=== PATIENT | female | born 1960 | race Caucasian/White ===

== ENCOUNTER 2017-04-20 08:37 | Inpatient (IN) | payer MEDICAID, OTHER ==
[~2017-04-20] VITALS: Ht 166.4 cm; Wt 74.2 kg
[2017-04-20 09:51] LABS: EOSINOPHILS % (AUTO) 2.6 % (1.0-6.0); HEMATOCRIT 42.5 % (36-46); HEMOGLOBIN 14.5 g/dL (12.0-16.0); LYMPHOCYTES % (AUTO) 32.9 % (22.0-44.0); MEAN CORPUSCULAR HEMOGLOBIN 36.8 pg (26.0-34.0); MEAN CORPUSCULAR HGB CONC 34.2 G/dL (31.0-37.0); MEAN CORPUSCULAR VOLUME 108 fL (80-100); MONOCYTES # (AUTO) 0.4 K/uL (0.1-1.0); MONOCYTES % (AUTO) 6.5 % (2.0-9.0); NEUTROPHILS # (AUTO) 3.5 K/uL (1.8-7.7); PLATELET COUNT (AUTO) 358 K/uL (150-450); RED BLOOD CELL COUNT(AUTO) 3.95 MIL/uL (4.00-5.20); RED CELL DISTRIBUTION WIDTH 14.9 % (11.5-14.5)
[2017-04-20 09:53] LABS: ANION GAP 12 mmol/L (8-16); CARBON DIOXIDE 24 mmol/L (22-29); CHLORIDE 107 mmol/L (98-107); CREATININE 0.49 mg/dL (0.60-1.30); GLUCOSE,RANDOM 96 mg/dL (70-110); POTASSIUM 3.6 mmol/L (3.5-5.1); SODIUM SERUM 143 mmol/L (136-145); UREA NITROGEN, BLOOD 8 mg/dL (7-18)
[2017-04-20 09:54] LABS: CALCIUM, TOTAL 8.5 mg/dL (8.8-10.5); GLOMERULAR FILTR. RATE CALC > 60 mL/min (>60)
[2017-04-20 10:01] LABS: ALANINE AMINOTRANSFERASE 25 U/L (12-78); ALBUMIN 4.1 g/dL (3.4-5.0); ALKALINE PHOSPHATASE 73 U/L (46-116); ASPARTATE AMINOTRANSFERASE 46 U/L (15-37); BILIRUBIN,TOTAL 0.2 mg/dL (0.1-1.0); TOTAL PROTEIN, SERUM 7.5 g/dL (6.4-8.2)
[2017-04-20] MEDS ORDERED: LORazepam 2 MG TABLET PO ONE (10:15)
[2017-04-20 10:25] LABS: AMPHET/METH SCREEN,URINE NEGATIVE (NEGATIVE); BARBITURATE SCREEN, URINE NEGATIVE (NEGATIVE); BENZODIAZEPINES SCREEN,URINE NEGATIVE (NEGATIVE); CANNABINOID SCREEN,URINE POSITIVE (NEGATIVE); COCAINE SCREEN,URINE NEGATIVE (NEGATIVE); METHADONE SCREEN, URINE NEGATIVE (NEGATIVE); OPIATE SCREEN,URINE NEGATIVE (NEGATIVE); PHENCYCLIDINE SCREEN,URINE NEGATIVE (NEGATIVE)
[2017-04-20] MEDS ORDERED: HALOPERIDOL 5 MG TABLET PO PRN (10:30)
[2017-04-20] MEDS ORDERED: CYANOCOBALAMIN 1,000 MCG/ML VIAL IM ONE (10:30)
[2017-04-20] MEDS ORDERED: ZOLPIDEM TARTRATE 10 MG TABLET PO PRN (10:30)
[2017-04-20] MEDS ORDERED: HydrOXYzine PAMOATE 50 MG CAPSULE PO PRN (10:30)
[2017-04-20] MEDS ORDERED: GuaiFENesin/D-METHORPHAN [SUGAR-FREE] 200-20MG/10 ML SYRUP UDCUP PO PRN (10:30)
[2017-04-20] MEDS ORDERED: LORazepam 2 MG TABLET PO PRN (10:30)
[2017-04-20] MEDS ORDERED: LOPERAMIDE HCL 2 MG CAPSULE PO PRN (10:30)
[2017-04-20 12:36] LABS: FREE T4 (FREE THYROXINE) 0.58 ng/dL (0.76-1.46); THYROID STIMULATING HORMONE 25.04 uIU/mL (0.36-3.74)
[2017-04-20] MEDS: THIAMINE HCL 100 MG TABLET PO SCH (17:17)
[2017-04-20 18:30] VITALS: BP 160/85
[2017-04-20] MEDS ORDERED: INFLUENZA VIRUS VACCINE QVS 2017-18 (3YR+)/PF 60 MCG/0.5 ML SYRINGE IM ONE (19:00)
[2017-04-20 19:30] VITALS: BP 126/84
[2017-04-20 20:30] VITALS: BP 144/84
[2017-04-20 21:30] VITALS: BP 131/79
[2017-04-20] MEDS ORDERED: ACETAMINOPHEN 325 MG TABLET PO PRN (21:30)
[2017-04-20 22:30] VITALS: BP 142/74
[2017-04-21] VITALS (10 sets, daily range): BP systolic 130–152; BP diastolic 72–97
[2017-04-21] MEDS ORDERED: LORazepam 2 MG TABLET PO PRN (07:00)
[2017-04-21] MEDS: LEVOTHYROXINE SODIUM 75 MCG TABLET PO SCH (08:00)
[2017-04-21] MEDS: THIAMINE HCL 100 MG TABLET PO SCH ×2 (08:24→16:45)
[2017-04-21] MEDS: LORazepam 2 MG TABLET PO SCH ×4 (08:24→20:39)
[2017-04-21] MEDS: MULTIVITAMINS WITH MINERALS, THERAPEUTIC TABLET PO SCH (08:24)
[2017-04-21] MEDS: FOLIC ACID 1 MG TABLET PO SCH (08:24)
[2017-04-22] VITALS (7 sets, daily range): BP systolic 129–156; BP diastolic 63–103
[2017-04-22] MEDS: LEVOTHYROXINE SODIUM 75 MCG TABLET PO SCH (06:33)
[2017-04-22] MEDS: MULTIVITAMINS WITH MINERALS, THERAPEUTIC TABLET PO SCH (09:37)
[2017-04-22] MEDS: THIAMINE HCL 100 MG TABLET PO SCH ×2 (09:38→17:23)
[2017-04-22] MEDS: FOLIC ACID 1 MG TABLET PO SCH (09:38)
[2017-04-22] MEDS: IBUPROFEN 400 MG TABLET PO PRN (14:24)
[2017-04-22] MEDS: LORazepam 2 MG TABLET PO PRN (17:23)
[2017-04-23] VITALS (9 sets, daily range): BP systolic 143–160; BP diastolic 83–95
[2017-04-23] MEDS: LEVOTHYROXINE SODIUM 75 MCG TABLET PO SCH (06:33)
[2017-04-23] MEDS ORDERED: LORazepam 1 MG TABLET PO PRN (07:00)
[2017-04-23] MEDS: MULTIVITAMINS WITH MINERALS, THERAPEUTIC TABLET PO SCH (08:45)
[2017-04-23] MEDS: FOLIC ACID 1 MG TABLET PO SCH (08:45)
[2017-04-23] MEDS: THIAMINE HCL 100 MG TABLET PO SCH ×2 (08:45→17:19)
[2017-04-23] MEDS ORDERED: LORazepam 1 MG TABLET PO SCH (09:00)
[2017-04-23] MEDS: IBUPROFEN 400 MG TABLET PO PRN ×2 (14:37→20:43)
[2017-04-23] MEDS: LORazepam 2 MG TABLET PO PRN ×2 (14:37→22:51)
[2017-04-23] MEDS: CloNIDine HCL 0.1 MG TABLET PO PRN (17:19)
[2017-04-24] MEDS: LEVOTHYROXINE SODIUM 75 MCG TABLET PO SCH (06:41)
[2017-04-24] MEDS ORDERED: LORazepam 1 MG TABLET PO PRN (07:00)
[2017-04-24 07:07] VITALS: BP 160/98
[2017-04-24 07:08] VITALS: BP 140/98
[2017-04-24 08:25] VITALS: BP 172/107
[2017-04-24] MEDS: FOLIC ACID 1 MG TABLET PO SCH (08:30)
[2017-04-24] MEDS: CloNIDine HCL 0.1 MG TABLET PO PRN (08:30)
[2017-04-24] MEDS: THIAMINE HCL 100 MG TABLET PO SCH (08:30)
[2017-04-24] MEDS: MULTIVITAMINS WITH MINERALS, THERAPEUTIC TABLET PO SCH (08:30)
[2017-04-24 09:44] VITALS: BP 130/96
== END 2017-04-24 15:50 | disposition home or self-care (01) | DRG 751 ==
LOC: EMS 08:38 → B3A 17:12
PROC: 3E0234Z Introduction of Serum, Toxoid and Vaccine into Muscle, Percutaneous Approach (ICD-10-PCS; principal; 2017-04-20)
DX: F29 Unspecified psychosis not due to a substance or known physiological condition (principal); F33.2 Major depressive disorder, recurrent severe without psychotic features; E03.9 Hypothyroidism, unspecified; F10.10 Alcohol abuse, uncomplicated; F12.90 Cannabis use, unspecified, uncomplicated; F41.9 Anxiety disorder, unspecified; H81.09 Meniere's disease, unspecified ear; G43.909 Migraine, unspecified, not intractable, without status migrainosus; E55.9 Vitamin D deficiency, unspecified; Z23 Encounter for immunization
CPT/HCPCS: 84439; 84443; 96372; 99285; G0480; J3420